=== PATIENT | female | born 1945 | race Caucasian/White ===

== ENCOUNTER 2024-08-01 10:58 | Inpatient (IN) | payer MEDICARE, MEDICAID ==
[~2024-08-01] VITALS: Ht 160 cm; Wt 57.3 kg
[~2024-08-01 10:58] MED LIST: AMLO2.5T29 PO; GABA-529 PO; LEVO100 PO; LOSA-382 PO; METO-391 PO; MIRT-92 PO; SERT-158 PO; SUCR1TAB2 PO
[2024-08-01] MEDS ORDERED: HALOPERIDOL 5 MG TABLET PO PRN (12:15)
[2024-08-01 13:36] LABS: GLUCOMETER DEV NAME(LOC) POC.BV; POC SARS-COV2 AG, FIA NEGATIVE (NEGATIVE)
[2024-08-01] MEDS: LORazepam 2 MG TABLET PO PRN (14:14)
[2024-08-01 14:57] VITALS: BP 164/63; PULSE 60; RESP 16; TEMP 97.3; O2SAT 99
[2024-08-01] MEDS ORDERED: NICOTINE 14 MG/24 HOUR PATCH TD PRN (15:30)
[2024-08-01] MEDS ORDERED: MAG HYDROX/ALUMINUM HYD/SIMETH ES 30 ML SUSPENSION UDCUP PO PRN (15:30)
[2024-08-01] MEDS ORDERED: ALBUTEROL SULFATE HFA 90 MCG/PUFF 8 GM INHALER IH PRN (15:30)
[2024-08-01] MEDS ORDERED: CloNIDine HCL 0.1 MG TABLET PO PRN (15:30)
[2024-08-01] MEDS ORDERED: PETROLATUM,WHITE 28 GM JELLY TP PRN (15:30)
[2024-08-01] MEDS ORDERED: LOPERAMIDE HCL 2 MG CAPSULE PO PRN (15:30)
[2024-08-01] MEDS ORDERED: GuaiFENesin/D-METHORPHAN [SUGAR-FREE] 200-20MG/10 ML SYRUP UDCUP PO PRN (15:30)
[2024-08-01] MEDS: SUCRALFATE 1 GM TABLET PO SCH (18:20)
[2024-08-01 20:19] VITALS: BP 141/63; PULSE 87; RESP 17; TEMP 98.2; O2SAT 93
[2024-08-02] MEDS: LEVOTHYROXINE SODIUM 100 MCG TABLET PO SCH (06:09)
[2024-08-02 08:20] LABS: BASOPHILS % (AUTO) 0.8 % (0.0-2.0); EOSINOPHILS % (AUTO) 1.3 % (1.0-6.0); HEMATOCRIT 36.7 % (36-46); HEMOGLOBIN 12.6 g/dL (12.0-16.0); LYMPHOCYTES # (AUTO) 1.1 K/uL (1.0-4.8); LYMPHOCYTES % (AUTO) 21.1 % (22.0-44.0); MEAN CORPUSCULAR HEMOGLOBIN 30.2 pg (26.0-34.0); MEAN CORPUSCULAR HGB CONC 34.4 G/dL (31.0-37.0); MEAN CORPUSCULAR VOLUME 88 fL (80-100); MONOCYTES # (AUTO) 0.7 K/uL (0.1-1.0); MONOCYTES % (AUTO) 13.3 % (2.0-9.0); NEUTROPHILS # (AUTO) 3.4 K/uL (1.8-7.7); NEUTROPHILS % (AUTO) 63.5 % (40.0-70.0); PLATELET COUNT (AUTO) 346 K/uL (150-450); RED BLOOD CELL COUNT(AUTO) 4.18 MIL/uL (4.00-5.20); RED CELL DISTRIBUTION WIDTH 12.3 % (11.5-14.5); WHITE BLOOD COUNT (AUTO) 5.3 K/uL (4.5-11.0)
[2024-08-02 08:32] VITALS: BP 127/71; PULSE 78; RESP 17; TEMP 97.3; O2SAT 98
[2024-08-02 08:42] LABS: ALANINE AMINOTRANSFERASE 26 U/L (12-78); ALBUMIN 3.6 g/dL (3.4-5.0); ALKALINE PHOSPHATASE 59 U/L (46-116); ANION GAP 8 mmol/L (8-16); ASPARTATE AMINOTRANSFERASE 23 U/L (15-37); BILIRUBIN,TOTAL 0.5 mg/dL (0.1-1.0); CALCIUM, TOTAL 9.1 mg/dL (8.8-10.5); CARBON DIOXIDE 27 mmol/L (22-29); CHLORIDE 100 mmol/L (98-107); CHOL/HDL RATIO 2.8 (3.9-5.7); CHOLESTEROL 199 mg/dL (131-200); CREATININE 0.78 mg/dL (0.60-1.30); GLOMERULAR FILTR. RATE CALC > 60 mL/min (>60); GLUCOSE,RANDOM 74 mg/dL (70-110); HDL CHOLESTEROL 70 mg/dL (40-60); LDL CHOL (CALC.) 111 mg/dL (0-130); SODIUM SERUM 135 mmol/L (136-145); THYROID STIMULATING HORMONE 1.61 uIU/mL (0.36-3.74); TOTAL PROTEIN, SERUM 6.7 g/dL (6.4-8.2); TRIGLYCERIDES 88 mg/dL (15-150); UREA NITROGEN, BLOOD 13 mg/dL (7-18)
[2024-08-02 09:17] LABS: HEMOGLOBIN A1C 5.1 % (3.8-5.6)
[2024-08-02] MEDS: LOSARTAN POTASSIUM 50 MG TABLET PO SCH (09:35)
[2024-08-02] MEDS: METOPROLOL SUCCINATE 50 MG ER TABLET PO SCH (09:36)
[2024-08-02] MEDS: AmLODIPine BESYLATE 2.5 MG TABLET PO SCH (09:36)
[2024-08-02] MEDS: LORazepam 1 MG TABLET PO PRN (12:17)
[2024-08-02 12:43] VITALS: BP 130/61
[2024-08-02] MEDS: SERTRALINE HCL 50 MG TABLET PO SCH (15:11)
[2024-08-02] MEDS: GABAPENTIN 100 MG CAPSULE PO SCH (16:25)
[2024-08-02] MEDS: ONDANSETRON 4 MG TABLET PO PRN (19:13)
[2024-08-02 20:00] VITALS: BP 111/54; PULSE 91; RESP 16; TEMP 98.8; O2SAT 98
[2024-08-02] MEDS: ACETAMINOPHEN 325 MG TABLET PO PRN (20:00)
[2024-08-02] MEDS: MIRTAZAPINE 15 MG TABLET PO SCH (20:02)
[2024-08-02 20:38] VITALS: BP 115/64; PULSE 91; RESP 16; TEMP 98.8; O2SAT 98
[2024-08-03 08:07] LABS: HEPATITIS C AB (EIA) Non Reactive (Non Reactive)
[2024-08-03 09:15] VITALS: BP 148/72; PULSE 66; RESP 17; TEMP 96.3; O2SAT 98
[2024-08-03] MEDS: ZOLPIDEM TARTRATE 10 MG TABLET PO PRN (20:10)
[2024-08-03 20:38] VITALS: BP 144/70; PULSE 72; RESP 16; TEMP 98.4; O2SAT 97
[2024-08-04 08:28] VITALS: BP 138/69; PULSE 70; RESP 17; TEMP 97.9; O2SAT 99
[2024-08-04 08:46] LABS: APPEARANCE,URINE CLEAR (CLEAR); BILIRUBIN,URINE NEGATIVE (NEGATIVE); COLOR,URINE LIGHT YELLOW (YELLOW); GLUCOSE, URINE (UA) NEGATIVE (NEGATIVE); KETONES,URINE NEGATIVE (NEGATIVE); LEUKOCYTE ESTERASE ,URINE NEGATIVE (NEGATIVE); NITRATE,URINE NEGATIVE (NEGATIVE); OCCULT BLOOD,URINE NEGATIVE (NEGATIVE); PH,URINE 7.5 (5.0-8.0); PH,URINE DRUG SCREEN 7.5 (5.0-8.0); PROTEIN,URINE NEGATIVE (NEGATIVE); SPECIFIC GRAVITIY, URINE 1.007 (1.003-1.030); UROBILINOGEN,URINE <=1.0 mg/dL (<=1.0)
[2024-08-04 08:58] LABS: AMPHET/METH SCREEN,URINE NEGATIVE (NEGATIVE); BARBITURATE SCREEN, URINE NEGATIVE (NEGATIVE); BENZODIAZEPINES SCREEN,URINE NEGATIVE (NEGATIVE); CANNABINOID SCREEN,URINE NEGATIVE (NEGATIVE); COCAINE SCREEN,URINE NEGATIVE (NEGATIVE); METHADONE SCREEN, URINE NEGATIVE (NEGATIVE); OPIATE SCREEN,URINE NEGATIVE (NEGATIVE); PHENCYCLIDINE SCREEN,URINE NEGATIVE (NEGATIVE)
[2024-08-04 09:01] LABS: ALCOHOL, URINE DRUG SCREEN NEGATIVE (NEGATIVE)
[2024-08-04] MEDS: MAGNESIUM HYDROXIDE SUSPENSION 30 ML UDCUP PO PRN (09:21)
[2024-08-04] MEDS: DOCUSATE SODIUM 100 MG CAPSULE PO PRN (13:42)
[2024-08-04 20:26] VITALS: BP 128/60; PULSE 75; RESP 16; TEMP 97.6; O2SAT 98
[2024-08-05 09:15] VITALS: BP 131/64; PULSE 60; RESP 16; TEMP 97.3; O2SAT 95
[2024-08-05 20:41] VITALS: BP 126/62; PULSE 76; RESP 15; TEMP 97.1; O2SAT 95
[2024-08-06 08:29] VITALS: BP 137/95; PULSE 75; RESP 19; TEMP 98.1; O2SAT 95
[2024-08-06 20:55] VITALS: BP 116/64; PULSE 64; RESP 16; TEMP 97; O2SAT 99
[2024-08-07] VITALS (9 sets, daily range): BP systolic 111–156; BP diastolic 60–87; PULSE 68–89; RESP 16–18; TEMP 97–98.3; O2SAT 98–99
[2024-08-07] MEDS: IBUPROFEN 400 MG TABLET PO PRN (16:46)
[2024-08-08 08:23] VITALS: BP 128/63; PULSE 69; RESP 16; TEMP 97.5; O2SAT 97
[2024-08-08 11:23] VITALS: RESP 16; O2SAT 97
[2024-08-08 12:23] VITALS: RESP 16
[2024-08-08 20:04] VITALS: BP 129/65; PULSE 84; RESP 17; TEMP 98.1; O2SAT 98
[2024-08-09 08:13] VITALS: BP 156/70; PULSE 74; RESP 18; TEMP 97.2; O2SAT 100
[2024-08-09] MEDS: SERTRALINE HCL 50 MG TABLET PO SCH (16:38)
[2024-08-09 20:00] VITALS: BP 134/65; PULSE 71; RESP 16; TEMP 97.4; O2SAT 100
[2024-08-10 08:30] VITALS: BP 144/70; PULSE 76; RESP 17; TEMP 97.3; O2SAT 100
[2024-08-10 20:47] VITALS: BP 123/56; PULSE 77; RESP 16; TEMP 97.7; O2SAT 98
[2024-08-11 08:31] VITALS: BP 132/66; PULSE 90; RESP 17; TEMP 97.1; O2SAT 97
[2024-08-11 08:57] VITALS: RESP 17; O2SAT 98
[2024-08-11 09:57] VITALS: RESP 17; O2SAT 98
[2024-08-11 20:17] VITALS: BP 136/69; PULSE 78; RESP 17; TEMP 98.5; O2SAT 97
[2024-08-12 04:02] VITALS: BP 166/86; PULSE 73; RESP 16; O2SAT 98
[2024-08-12 08:07] VITALS: BP 149/74; PULSE 78; RESP 16; TEMP 98.3; O2SAT 78
[2024-08-12 20:46] VITALS: BP 145/67; PULSE 70; RESP 16; TEMP 98.4; O2SAT 70
[2024-08-13 08:08] VITALS: BP 157/79; PULSE 78; RESP 16; TEMP 97.4; O2SAT 98
[2024-08-13] MEDS: GABAPENTIN 100 MG CAPSULE PO SCH (12:27)
[2024-08-13 20:00] VITALS: BP 124/68; PULSE 73; RESP 17; TEMP 97.3; O2SAT 99
[2024-08-13] MEDS: MIRTAZAPINE 30 MG TABLET PO SCH (20:09)
[2024-08-14 10:03] VITALS: BP 143/64; PULSE 77; RESP 13; TEMP 96; O2SAT 96
[2024-08-14 18:47] VITALS: RESP 17
[2024-08-14 19:47] VITALS: RESP 16
[2024-08-14 20:36] VITALS: BP 138/76; PULSE 76; RESP 17; TEMP 97.6; O2SAT 97
[2024-08-15 05:47] VITALS: BP 187/82; PULSE 77; RESP 20; TEMP 97.8; O2SAT 98
[2024-08-15 08:22] VITALS: BP 147/70; PULSE 64; RESP 17; TEMP 97.9; O2SAT 97
[2024-08-15 19:58] VITALS: BP 137/66; RESP 16; TEMP 97.1; O2SAT 98
[2024-08-15 21:47] VITALS: BP 147/70; PULSE 64; RESP 17; TEMP 97.9; O2SAT 97
[2024-08-16] VITALS (8 sets, daily range): BP systolic 136–149; BP diastolic 67–88; PULSE 65–84; RESP 16–18; TEMP 96.6–97; O2SAT 98
[2024-08-17 08:30] VITALS: BP 148/74; PULSE 70; RESP 17; TEMP 97.4; O2SAT 99
[2024-08-17] MEDS: ARIPiprazole 5 MG TABLET PO SCH (13:36)
[2024-08-17 20:00] VITALS: BP 129/64; PULSE 65; RESP 17; TEMP 98.8; O2SAT 98
[2024-08-17] MEDS: MIRTAZAPINE 15 MG TABLET PO SCH (21:26)
[2024-08-18 08:38] VITALS: RESP 17; O2SAT 98
[2024-08-18 08:44] VITALS: BP 151/77; PULSE 69; RESP 17; TEMP 98.3; O2SAT 97
[2024-08-18 09:38] VITALS: RESP 17; O2SAT 98
[2024-08-18 19:30] VITALS: BP 141/68; PULSE 69; RESP 18; TEMP 98.4; O2SAT 98
[2024-08-18 21:00] VITALS: BP 138/62; PULSE 64; RESP 16; TEMP 98.2; O2SAT 96
[2024-08-19 09:51] VITALS: RESP 18
[2024-08-19 10:25] VITALS: BP 139/65; PULSE 69; RESP 16; TEMP 98.3; O2SAT 97
[2024-08-19 10:51] VITALS: RESP 18
[2024-08-19] MEDS ORDERED: SERT20OR6 PO (13:09)
[2024-08-19] MEDS ORDERED: ARIP5TAB8 PO (13:10)
[2024-08-19] MEDS ORDERED: MIRT-149 PO (13:10)
[2024-08-19] MEDS ORDERED: GABA-1216 PO (13:11)
[2024-08-19] MEDS ORDERED: AMLO2.5T96 PO (13:14)
[2024-08-19] MEDS ORDERED: METO-325 PO (13:15)
== END 2024-08-19 16:35 | disposition home or self-care (01) | DRG 885 ==
LOC: B2S 12:13
PROVIDERS: ADMIT Psychiatry & Neurology Child & Adolescent Psychiatry; ATTEND Psychiatry & Neurology Child & Adolescent Psychiatry
PROC: GZ56ZZZ Individual Psychotherapy, Supportive (ICD-10-PCS; 2024-08-02)
PROC: GZ52ZZZ Individual Psychotherapy, Cognitive (ICD-10-PCS; 2024-08-03)
PROC: GZHZZZZ Group Psychotherapy (ICD-10-PCS; principal; 2024-08-04)
DX: F33.2 Major depressive disorder, recurrent severe without psychotic features (principal); I10 Essential (primary) hypertension; E03.9 Hypothyroidism, unspecified; F41.9 Anxiety disorder, unspecified; G47.00 Insomnia, unspecified; Z20.822 Contact with and (suspected) exposure to COVID-19; K21.9 Gastro-esophageal reflux disease without esophagitis; K59.00 Constipation, unspecified; Z88.0 Allergy status to penicillin; Z88.6 Allergy status to analgesic agent; Z87.891 Personal history of nicotine dependence
CPT/HCPCS: 80053; 80061; 80307; 81003; 83036; 84443; 85025; 86803; 87340; Q0162

== ENCOUNTER → 2024-12-14 | Emergency (ER) | payer MEDICARE, MEDICAID ==
[~2024-12-14] VITALS: Ht 160 cm; Wt 56.8 kg
[~2024-12-14] MED LIST changes: -AMLO2.5T29 PO; +ARIP5TAB37 PO; +ATOR40TA71 PO; +CARV6.2534 PO; +DOCU-412 PO; +DULO60CA73 PO; -GABA-529 PO; +LAMO25TA36 PO; +MELA5TAB40 PO; -METO-391 PO; +MIRT-89 PO; -MIRT-92 PO; +MODA100T65 PO; -SERT-158 PO; -SUCR1TAB2 PO; +TRAZ-252 PO
[2024-12-14 14:25] LABS: PLATELET COUNT (AUTO) 339 K/uL (150-450); RED BLOOD CELL COUNT(AUTO) 4.66 MIL/uL (4.00-5.20); RED CELL DISTRIBUTION WIDTH 13.1 % (11.5-14.5); WHITE BLOOD COUNT (AUTO) 4.1 K/uL (4.5-11.0)
[2024-12-14 14:26] LABS: CALCIUM, TOTAL 9.0 mg/dL (8.8-10.5); CREATININE 0.78 mg/dL (0.60-1.30); GLOMERULAR FILTR. RATE CALC > 60 mL/min (>60); GLUCOSE,RANDOM 85 mg/dL (70-110); SODIUM SERUM 139 mmol/L (136-145); UREA NITROGEN, BLOOD 11 mg/dL (7-18)
[2024-12-14 14:29] LABS: ASPARTATE AMINOTRANSFERASE 28.0 U/L (15-37); CREATINE KINASE, TOTAL ONLY 64.0 U/L (26-192); TOTAL PROTEIN, SERUM 7.3 g/dL (6.4-8.2)
[2024-12-14 14:36] LABS: TROPONIN I-HIGH SENSITIVITY 7 ng/L (<51)
[2024-12-14 14:41] LABS: COVID AG,FIA SOURCE NASAL SWAB
[2024-12-14 15:01] LABS: SARS-COV2 (COVID) ANTIGEN,FIA Negative (Negative)
[2024-12-14 15:23] LABS: APPEARANCE,URINE CLEAR (CLEAR); GLUCOSE, URINE (UA) NEGATIVE (NEGATIVE); LEUKOCYTE ESTERASE ,URINE NEGATIVE (NEGATIVE); NITRATE,URINE NEGATIVE (NEGATIVE); OCCULT BLOOD,URINE NEGATIVE (NEGATIVE); SPECIFIC GRAVITIY, URINE 1.005 (1.003-1.030)
[2024-12-14 15:28] LABS: ALCOHOL, URINE DRUG SCREEN NEGATIVE (NEGATIVE); AMPHET/METH SCREEN,URINE NEGATIVE (NEGATIVE); BARBITURATE SCREEN, URINE NEGATIVE (NEGATIVE); CANNABINOID SCREEN,URINE NEGATIVE (NEGATIVE); COCAINE SCREEN,URINE NEGATIVE (NEGATIVE); METHADONE SCREEN, URINE NEGATIVE (NEGATIVE); PH,URINE DRUG SCREEN 7.5 (5.0-8.0)
[2024-12-14 16:49] VITALS: BP 147/111; PULSE 72; RESP 18; TEMP 98.2; O2SAT 98
[2024-12-14] MEDS: ACETAMINOPHEN 325 MG TABLET PO ONE (16:54)
== END | disposition still patient (30) ==
LOC: EMS 13:39
DX: R55 Syncope and collapse (principal); I10 Essential (primary) hypertension; F32.A Depression, unspecified; Z88.6 Allergy status to analgesic agent; Z88.0 Allergy status to penicillin; Z79.899 Other long term (current) drug therapy; Z20.822 Contact with and (suspected) exposure to COVID-19
CPT/HCPCS: 99285; 71045; 87426; 80048; 80076; 81003; 82550; 83880; 84484; 85025; 36415; 93005; 80307; G0480

== ENCOUNTER 2025-03-09 12:26 | Inpatient (IN) | payer MEDICARE, MEDICAID ==
[~2025-03-09] VITALS: Ht 160 cm; Wt 56.7 kg
[~2025-03-09 12:26] MED LIST changes: -MODA100T65 PO
[2025-03-09] MEDS ORDERED: NIFE-40 PO (13:24)
[2025-03-09] MEDS ORDERED: PROMETHAZINE HCL 25 MG TABLET PO PRN (14:30)
[2025-03-09] MEDS ORDERED: ACETAMINOPHEN 325 MG TABLET PO PRN (14:30)
[2025-03-09] MEDS ORDERED: CYANOCOBALAMIN 1,000 MCG/ML VIAL IM ONE (14:30)
[2025-03-09] MEDS ORDERED: MAG HYDROX/ALUMINUM HYD/SIMETH ES 30 ML SUSPENSION UDCUP PO PRN (14:30)
[2025-03-09] MEDS ORDERED: LOPERAMIDE HCL 2 MG CAPSULE PO PRN ×2 (14:30)
[2025-03-09] MEDS ORDERED: GuaiFENesin/D-METHORPHAN [SUGAR-FREE] 200-20MG/10 ML SYRUP UDCUP PO PRN (14:30)
[2025-03-09 14:46] LABS: GLUCOMETER DEV NAME(LOC) POC.BV; POC SARS-COV2 AG, FIA NEGATIVE (NEGATIVE)
[2025-03-09 16:21] VITALS: BP 150/72; PULSE 89; RESP 15; TEMP 97.7; O2SAT 98
[2025-03-09 16:23] VITALS: BP 150/72; PULSE 89; RESP 15; TEMP 97.7; O2SAT 98
[2025-03-09 20:15] VITALS: BP 142/70; PULSE 87; RESP 18; TEMP 97.8; O2SAT 98
[2025-03-09] MEDS: MIRTAZAPINE 15 MG TABLET PO SCH (20:26)
[2025-03-09] MEDS: THIAMINE 100 MG TABLET PO SCH (20:26)
[2025-03-09] MEDS: MELATONIN 5 MG TABLET PO SCH (20:26)
[2025-03-10] MEDS: LEVOTHYROXINE SODIUM 100 MCG TABLET PO SCH (06:12)
[2025-03-10 08:25] VITALS: BP 124/82; PULSE 71; RESP 17; TEMP 98.4; O2SAT 98
[2025-03-10] MEDS: DULoxetine HCL 30 MG CAPSULE PO SCH (09:34)
[2025-03-10] MEDS: LOSARTAN POTASSIUM 50 MG TABLET PO SCH (09:35)
[2025-03-10] MEDS: MULTIVITAMINS WITH MINERALS, THERAPEUTIC TABLET PO SCH (09:35)
[2025-03-10] MEDS: FOLIC ACID 1 MG TABLET PO SCH (09:36)
[2025-03-10] MEDS: ATORVASTATIN CALCIUM 40 MG TABLET PO SCH (09:37)
[2025-03-10] MEDS: MAGNESIUM HYDROXIDE SUSPENSION 30 ML UDCUP PO PRN (12:31)
[2025-03-10 16:30] VITALS: BP 149/76; PULSE 80; RESP 16; O2SAT 99
[2025-03-10 20:38] VITALS: BP 122/80; PULSE 69; RESP 16; TEMP 97.7; O2SAT 99
[2025-03-10 21:47] VITALS: BP 122/80; PULSE 74; RESP 18; TEMP 97.9; O2SAT 97
[2025-03-10] MEDS: ZOLPIDEM TARTRATE 10 MG TABLET PO PRN (22:39)
[2025-03-11 08:07] VITALS: BP 135/73; PULSE 75; RESP 17; TEMP 98.4; O2SAT 98
[2025-03-11] MEDS ORDERED: CARV12 PO (16:43)
[2025-03-11 18:19] VITALS: BP 132/98; PULSE 89; RESP 18; TEMP 98.3; O2SAT 97
[2025-03-11 20:17] VITALS: BP 126/69; PULSE 84; RESP 18; TEMP 97.5; O2SAT 99
[2025-03-12 08:52] VITALS: BP 121/66; PULSE 67; RESP 18; TEMP 98.6; O2SAT 99
[2025-03-12] MEDS ORDERED: MODA100T65 PO (16:12)
[2025-03-12] MEDS ORDERED: ARIP5TAB37 PO (16:12)
[2025-03-12] MEDS ORDERED: DULO30CA62 PO (16:12)
[2025-03-12] MEDS ORDERED: ATOR40TA28 PO (17:28)
[2025-03-12] MEDS ORDERED: CARV-165 PO (17:29)
[2025-03-12] MEDS ORDERED: FOLI-130 PO (17:31)
[2025-03-12] MEDS ORDERED: LEVO100T4 PO (17:33)
[2025-03-12] MEDS ORDERED: THIA100T80 PO (17:34)
== END 2025-03-12 18:15 | disposition home or self-care (01) | DRG 885 ==
LOC: B2S 14:34 → B2X 03-11 11:46
PROVIDERS: ADMIT Psychiatry & Neurology Psychiatry; ATTEND Psychiatry & Neurology Psychiatry
PROC: GZHZZZZ Group Psychotherapy (ICD-10-PCS; principal; 2025-03-09)
PROC: GZ51ZZZ Individual Psychotherapy, Behavioral (ICD-10-PCS; 2025-03-09)
DX: F33.2 Major depressive disorder, recurrent severe without psychotic features (principal); E03.9 Hypothyroidism, unspecified; I10 Essential (primary) hypertension; F41.9 Anxiety disorder, unspecified; E78.5 Hyperlipidemia, unspecified; Z20.822 Contact with and (suspected) exposure to COVID-19; G47.00 Insomnia, unspecified; K21.9 Gastro-esophageal reflux disease without esophagitis; K59.00 Constipation, unspecified; Z88.0 Allergy status to penicillin; Z81.8 Family history of other mental and behavioral disorders; Z88.6 Allergy status to analgesic agent; Z72.0 Tobacco use